=== PATIENT | female | born 2000 | race African-American/Black ===

== ENCOUNTER 2018-07-02 16:31 | Observation (INO) | payer BC, MEDICAID ==
[~2018-07-02] VITALS: Ht 170.2 cm; Wt 73.5 kg
[2018-07-02 17:44] LABS: CLARITY URINE CLEAR (CLEAR); COLOR URINE YELLOW (YELLOW); KETONES URINE NEGATIVE (NEGATIVE); LEUKOCYTE ESTERASE URINE TRACE (NEGATIVE); NITRITE URINE NEGATIVE (NEGATIVE); OCCULT BLOOD URINE 2+ (NEGATIVE); PROTEIN URINE NEGATIVE (NEGATIVE); SPECIFIC GRAVITY URINE 1.012 (1.005-1.030); UROBILINOGEN URINE 0.2 E.U./dL (0.2-1.0)
[2018-07-02] MEDS: SODIUM CHLORIDE 0.9% 1,000 ML IV SCH ×2 (18:10→19:23)
[2018-07-02] MEDS ORDERED: PREN1TAB78 MT (18:45)
== END 2018-07-02 21:00 | disposition home or self-care (01) ==
LOC: L&D 16:31
PROVIDERS: ADMIT Specialist; ATTEND Specialist
DX: O62.9 Abnormality of forces of labor, unspecified (principal); Z3A.35 35 weeks gestation of pregnancy
CPT/HCPCS: 81003; G0378; J7030; 96360; 96361; 99281

== ENCOUNTER 2021-12-06 08:54 | Emergency (ER) | payer BC, MEDICAID ==
[~2021-12-06] VITALS: Ht 170.2 cm; Wt 72.0 kg
[~2021-12-06 08:54] MED LIST: PREN1TAB78 MT
[2021-12-06] MEDS ORDERED: AMOX-424 MT (10:08)
[2021-12-06 10:15] VITALS: BP 125/87
== END 2021-12-06 10:16 | disposition home or self-care (01) ==
LOC: ER 08:54
DX: S00.511A Abrasion of lip, initial encounter (principal); L08.9 Local infection of the skin and subcutaneous tissue, unspecified; J45.909 Unspecified asthma, uncomplicated; Z98.890 Other specified postprocedural states; Y04.0XXA Assault by unarmed brawl or fight, initial encounter; Y93.89 Activity, other specified; Y92.89 Other specified places as the place of occurrence of the external cause
CPT/HCPCS: 99283